=== PATIENT | male | born 1975 | race African-American/Black ===

== ENCOUNTER 2020-05-06 23:58 | Inpatient (IN) | payer MEDICAID, OTHER ==
[~2020-05-06] VITALS: Ht 175.3 cm; Wt 78.2 kg
[~2020-05-06 23:58] MED LIST: ABAC1TAB7 PO; CIPR500T4 PO; HYDR-3237 PO; LISI5TAB7 PO; METR500T PO; ONDA4TAB10 PO; RITO100C PO; [UNRECOGNIZED DRUG - OTHER]
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
[2020-05-07 01:28] LABS: BASOPHILS % (AUTO) 1 % (0-1); EOSINOPHILS % (AUTO) 2 % (1-7); LYMPHOCYTES % (AUTO) 21 % (22-44); MEAN CORPUSCULAR HEMOGLOBIN 30.8 pg (27.5-34.5); MEAN CORPUSCULAR HGB CONC 33.4 g/dL (33.2-36.2); MEAN PLATELET VOLUME 8.5 fL (7.4-10.4); MONOCYTES % (AUTO) 6 % (2-9); NEUTROPHILS % (AUTO) 70 % (42-75); PLATELET COUNT 334 x10^3/uL (130-400); RED BLOOD COUNT 4.61 x10^6/uL (4.38-5.82); RED CELL DISTRIBUTION WIDTH 17.6 % (9.4-14.8)
--- NOTE | 2020-05-07 01:35 | NUR ---
[facility] AT BEDSIDE AT THIS TIME.
[2020-05-07 01:36] LABS: ALANINE AMINOTRANSFERASE 40 U/L (12-78); ANION GAP 7 mmol/L (5-15); CALCIUM 9.7 mg/dL (8.5-10.1); CHLORIDE 107 mmol/L (98-107); CREATININE 1.31 mg/dL (0.7-1.3)
--- NOTE | 2020-05-07 01:37 | NUR ---
PROVIDER AT BEDSIDE
[2020-05-07 01:38] LABS: ALKALINE PHOSPHATASE 74 U/L (45-117); BILIRUBIN,TOTAL 1.6 mg/dL (0.2-1.0); INTERNATIONAL NORMALIZED RATIO 1.07 (0.93-1.1); MD NO; PROTHROMBIN TIME 11.4 Seconds (9.6-11.5); TOTAL PROTEIN 9.2 g/dL (6.4-8.2)
[2020-05-07 01:40] LABS: SALICYLATE LEVEL < 1.7 mg/dL (2.8-20.0)
[2020-05-07] MEDS ORDERED: ASPIRIN 300 MG SUPP PR ONE (02:00)
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
[2020-05-07] MEDS ORDERED: DOCUSATE 100 MG CAPSULE PO PRN (02:30)
[2020-05-07] MEDS ORDERED: LABETALOL 5MG/ML, 20ML IVPush PRN (02:30)
[2020-05-07] MEDS ORDERED: SODIUM CHLORIDE 0.9% 1,000 ML IV SCH (02:30)
[2020-05-07 02:39] LABS: AMPHETAMINE SCREEN, URINE Positive (Negative); BARBITURATE SCREEN, URINE Negative (Negative); BENZODIAZEPINE SCREEN, URINE Negative (Negative); CANNABINOID SCREEN, URINE Positive (Negative); COCAINE SCREEN, URINE Negative (Negative); METHADONE SCREEN, URINE Negative (Negative); OPIATE SCREEN, URINE Negative (Negative)
--- NOTE | 2020-05-07 03:21 | NUR ---
attempted to get mri sheet filled out, pt unable to answer questions. called mri and nobody is answering
[2020-05-07 03:33] LABS: MICROSCOPIC NOT IND
--- NOTE | 2020-05-07 03:58 | NUR ---
pt to mri
--- NOTE | 2020-05-07 04:58 | NUR ---
Back from MRI, pt placed back on monitor, cont pulse ox. HOB 30*. Waiting for tele bed.
--- NOTE | 2020-05-07 05:47 | NUR ---
MRI DOC CALLED AND STATED THAT INFACT DOES NOT LOOK ACUTE AND MAY BE AN INFECTIOUS PROCESS WELL, RECOMMEND MRI WITH CONTRAST.
[2020-05-07] MEDS: HEPARIN 5,000 UNITS/ML, 1ML SQ SCH ×4 (06:05→22:24)
[2020-05-07] MEDS: ASPIRIN 81 MG TABLET CHEW PO/NG SCH (08:43)
[2020-05-07 09:52] VITALS: BP 136/90
[2020-05-07] MEDS ORDERED: GADOTERATE 10 MMOL/20 ML VIAL ONE (11:18)
[2020-05-07] MEDS: ATORVASTATIN 40 MG TABLET PO SCH (19:14)
[2020-05-07 19:53] VITALS: BP 126/65
[2020-05-08 02:35] VITALS: BP 136/79
[2020-05-08] MEDS: HEPARIN 5,000 UNITS/ML, 1ML SQ SCH ×3 (07:00→23:00)
[2020-05-08] MEDS: ASPIRIN 81 MG TABLET CHEW PO/NG SCH (07:36)
[2020-05-08 11:53] VITALS: BP 132/78
[2020-05-08 13:24] LABS: BASOPHILS % (AUTO) 1 % (0-1); EOSINOPHILS % (AUTO) 2 % (1-7); LYMPHOCYTES % (AUTO) 20 % (22-44); MEAN CORPUSCULAR HEMOGLOBIN 30.6 pg (27.5-34.5); MEAN CORPUSCULAR HGB CONC 33.3 g/dL (33.2-36.2); MEAN PLATELET VOLUME 8.4 fL (7.4-10.4); MONOCYTES % (AUTO) 6 % (2-9); NEUTROPHILS % (AUTO) 72 % (42-75); PLATELET COUNT 347 x10^3/uL (130-400); RED BLOOD COUNT 4.58 x10^6/uL (4.38-5.82); RED CELL DISTRIBUTION WIDTH 17.8 % (9.4-14.8)
[2020-05-08 13:27] LABS: MD NO
[2020-05-08 13:35] LABS: ANION GAP 5 mmol/L (5-15); CHLORIDE 107 mmol/L (98-107)
[2020-05-08 13:39] LABS: CHOL/HDL RATIO 3.3; CHOLESTEROL, TOTAL 155 mg/dL (140-239); CREATININE 1.26 mg/dL (0.7-1.3); HDL CHOL % 30 % (26-37); HDL CHOLESTEROL (DIRECT) 47 mg/dL (40-60); LDL CHOLESTEROL,CALCULATED 94 mg/dL (54-169); TRIGLYCERIDES 71 mg/dL (50-200); VLDL CHOLESTEROL 14 mg/dL (0-25)
[2020-05-08 19:17] VITALS: BP 159/99
[2020-05-08] MEDS: ATORVASTATIN 40 MG TABLET PO SCH (20:17)
[2020-05-09] MEDS: HEPARIN 5,000 UNITS/ML, 1ML SQ SCH ×3 (07:00→23:14)
[2020-05-09] MEDS: ASPIRIN 81 MG TABLET CHEW PO/NG SCH (10:27)
[2020-05-09 12:47] VITALS: BP 131/86
[2020-05-09] MEDS: ACETAMINOPHEN 325 MG TABLET PO PRN (14:26)
[2020-05-09 19:19] VITALS: BP 148/99
[2020-05-09] MEDS: ATORVASTATIN 40 MG TABLET PO SCH (20:18)
[2020-05-10 00:56] VITALS: BP 126/82
[2020-05-10] MEDS: HEPARIN 5,000 UNITS/ML, 1ML SQ SCH ×3 (07:00→23:16)
[2020-05-10] MEDS: ASPIRIN 81 MG TABLET CHEW PO/NG SCH (09:33)
[2020-05-10 12:19] VITALS: BP 139/94
[2020-05-10 18:24] VITALS: BP 99/64
[2020-05-10 18:43] VITALS: BP 142/91
[2020-05-10] MEDS: ATORVASTATIN 40 MG TABLET PO SCH (21:00)
[2020-05-11 01:01] VITALS: BP 154/95
[2020-05-11 06:52] VITALS: BP 142/91
[2020-05-11] MEDS: HEPARIN 5,000 UNITS/ML, 1ML SQ SCH ×4 (07:00→23:06)
[2020-05-11] MEDS: ASPIRIN 81 MG TABLET CHEW PO/NG SCH (09:00)
[2020-05-11 12:18] VITALS: BP 131/90
[2020-05-11 18:49] VITALS: BP 153/99
[2020-05-11] MEDS: ATORVASTATIN 40 MG TABLET PO SCH (20:48)
[2020-05-12 00:40] VITALS: BP 142/90
[2020-05-12 06:27] VITALS: BP 137/88
[2020-05-12] MEDS: HEPARIN 5,000 UNITS/ML, 1ML SQ SCH ×3 (07:00→23:31)
[2020-05-12] MEDS: ASPIRIN 81 MG TABLET CHEW PO/NG SCH (07:29)
[2020-05-12] MEDS ORDERED: DOCU-131 PO (10:45)
[2020-05-12] MEDS ORDERED: ASPI-963 PO/NG (10:45)
[2020-05-12] MEDS ORDERED: HEPA50002 SQ (10:45)
[2020-05-12] MEDS ORDERED: ACET325T26 PO (10:45)
[2020-05-12] MEDS ORDERED: ATOR40TA78 PO (10:45)
[2020-05-12] MEDS: LAMIVUDINE PO SCH (11:00)
[2020-05-12] MEDS ORDERED: RITONAVIR 100 MG PO SCH ×2 (11:00→11:30)
[2020-05-12] MEDS: ABACAVIR SULFATE PO SCH (11:00)
[2020-05-12] MEDS: LISINOPRIL 5 MG TABLET PO SCH (11:52)
[2020-05-12 13:30] VITALS: BP 132/91
[2020-05-12] MEDS: ATORVASTATIN 40 MG TABLET PO SCH (20:12)
[2020-05-12 20:20] VITALS: BP 134/90
[2020-05-13 01:07] VITALS: BP 116/83
[2020-05-13] MEDS: HEPARIN 5,000 UNITS/ML, 1ML SQ SCH ×3 (07:00→21:12)
[2020-05-13] MEDS: ABACAVIR SULFATE PO SCH (07:50)
[2020-05-13] MEDS: LAMIVUDINE PO SCH (07:50)
[2020-05-13] MEDS: LISINOPRIL 5 MG TABLET PO SCH (08:32)
[2020-05-13] MEDS: ASPIRIN 81 MG TABLET CHEW PO/NG SCH (08:32)
[2020-05-13 13:01] VITALS: BP 132/91
[2020-05-13 21:10] VITALS: BP 131/88
[2020-05-13] MEDS: ATORVASTATIN 40 MG TABLET PO SCH (21:12)
[2020-05-13] MEDS: ACETAMINOPHEN 325 MG TABLET PO PRN (23:38)
[2020-05-14 00:03] VITALS: BP 138/83
[2020-05-14] MEDS: HEPARIN 5,000 UNITS/ML, 1ML SQ SCH ×3 (05:53→20:13)
[2020-05-14] MEDS: ACETAMINOPHEN 325 MG TABLET PO PRN ×2 (06:41→20:12)
[2020-05-14 07:11] VITALS: BP 134/88
[2020-05-14] MEDS: LAMIVUDINE PO SCH (09:00)
[2020-05-14] MEDS: ABACAVIR SULFATE PO SCH (09:00)
[2020-05-14] MEDS: LISINOPRIL 5 MG TABLET PO SCH (10:02)
[2020-05-14] MEDS: ASPIRIN 81 MG TABLET CHEW PO/NG SCH (10:03)
[2020-05-14 12:22] VITALS: BP 136/90
[2020-05-14 19:56] VITALS: BP 135/88
[2020-05-14] MEDS: ATORVASTATIN 40 MG TABLET PO SCH (20:13)
[2020-05-15 02:00] VITALS: BP 134/80
[2020-05-15] MEDS: HEPARIN 5,000 UNITS/ML, 1ML SQ SCH ×3 (05:09→21:00)
[2020-05-15 06:24] VITALS: BP 133/75
[2020-05-15] MEDS: ACETAMINOPHEN 325 MG TABLET PO PRN ×2 (08:43→16:25)
[2020-05-15] MEDS: ASPIRIN 81 MG TABLET CHEW PO/NG SCH (08:43)
[2020-05-15] MEDS: LISINOPRIL 5 MG TABLET PO SCH (08:43)
[2020-05-15] MEDS: ABACAVIR SULFATE PO SCH (09:00)
[2020-05-15] MEDS: LAMIVUDINE PO SCH (09:00)
[2020-05-15 13:20] VITALS: BP 118/78
[2020-05-15 19:30] VITALS: BP 121/83
[2020-05-15] MEDS: ATORVASTATIN 40 MG TABLET PO SCH (21:00)
[2020-05-16 01:47] VITALS: BP 115/82
[2020-05-16] MEDS: HEPARIN 5,000 UNITS/ML, 1ML SQ SCH (05:00)
[2020-05-16 07:06] VITALS: BP 119/61
[2020-05-16] MEDS ORDERED: POLYETHYLENE GLYCOL 17 GM PACKET PO PRN ×2 (08:00→09:42)
[2020-05-16] MEDS: ABACAVIR SULFATE PO SCH (09:00)
[2020-05-16] MEDS: LAMIVUDINE PO SCH (09:00)
[2020-05-16] MEDS ORDERED: POLY17PO5 PO (09:04)
[2020-05-16] MEDS ORDERED: POLYETHYLENE GLYCOL 17 GM PACKET ONE (09:40)
[2020-05-16] MEDS: LISINOPRIL 5 MG TABLET PO SCH (09:43)
[2020-05-16] MEDS: ASPIRIN 81 MG TABLET CHEW PO/NG SCH (09:43)
== END 2020-05-16 12:28 | DRG 914 ==
LOC: MERGE 23:58 → EDBD 23:58 → ED 05-07 02:03 → EDIP 05-07 02:12 → 4WST 05-07 04:42
PROVIDERS: ADMIT Family Medicine; ATTEND Internal Medicine
DX: S09.90XA Unspecified injury of head, initial encounter (principal); I50.32 Chronic diastolic (congestive) heart failure; Z21 Asymptomatic human immunodeficiency virus [HIV] infection status; S00.11XA Contusion of right eyelid and periocular area, initial encounter; R56.9 Unspecified convulsions; I11.0 Hypertensive heart disease with heart failure; F15.90 Other stimulant use, unspecified, uncomplicated; I65.23 Occlusion and stenosis of bilateral carotid arteries; R47.81 Slurred speech; R29.810 Facial weakness; X58.XXXA Exposure to other specified factors, initial encounter; Z79.899 Other long term (current) drug therapy; Z86.73 Personal history of transient ischemic attack (TIA), and cerebral infarction without residual deficits; Z91.14 Patient's other noncompliance with medication regimen; Z91.19 Patient's noncompliance with other medical treatment and regimen; Z79.82 Long term (current) use of aspirin; Z88.8 Allergy status to other drugs, medicaments and biological substances
CPT/HCPCS: 36415; 70450; 70486; 70544; 70551; 70552; 71045; 72125; 74230; 80048; 80053; 80061; 80299; 80307; 80320; 80329; 81003; 85025; 85610; 85730; 86361; 93005; 93306; 93356; 93880; 99285; G0378; J1644; 92523-GN; A9575; G0480; J7030